=== PATIENT | male | born 1990 | race Caucasian/White ===

== ENCOUNTER 2016-10-06 12:08 | Emergency (ER) | payer OTHER ==
[~2016-10-06] VITALS: Ht 177.8 cm; Wt 64.9 kg
[2016-10-06] MEDS ORDERED: IBUP800T23 PO (12:25)
[2016-10-06] MEDS ORDERED: ULTR50TA PO (13:55)
--- NOTE | 2016-10-06 14:00 | REP ---
RIGHT FOOT SERIES: Four views. HISTORY: Trauma. FINDINGS: Four views right foot demonstrate overall normal mineralization. No fracture or subluxation is seen IMPRESSION: Negative right foot views. Signed by Krish Bal MD 10/06/2016 05:00 P
[2016-10-06 14:08] VITALS: BP 124/75
== END 2016-10-06 14:11 | disposition home or self-care (01) ==
LOC: M ED 13:03
DX: S93.601A Unspecified sprain of right foot, initial encounter (principal); W22.8XXA Striking against or struck by other objects, initial encounter; Y92.89 Other specified places as the place of occurrence of the external cause; Y93.89 Activity, other specified; Y99.8 Other external cause status; M25.551 Pain in right hip; M79.651 Pain in right thigh

== ENCOUNTER 2016-10-28 11:53 | Emergency (ER) | payer OTHER ==
[~2016-10-28] VITALS: Ht 177.8 cm; Wt 66.2 kg
[~2016-10-28 11:53] MED LIST: IBUP800T23 PO; ULTR50TA PO
[2016-10-28 11:54] VITALS: BP 131/73
[2016-10-28] MEDS ORDERED: TRAM50TA2 PO (12:47)
== END 2016-10-28 13:11 | disposition home or self-care (01) ==
LOC: M ED 12:18
DX: S93.601A Unspecified sprain of right foot, initial encounter (principal); X58.XXXA Exposure to other specified factors, initial encounter; Y92.89 Other specified places as the place of occurrence of the external cause; Y93.89 Activity, other specified; Y99.1 Military activity; F17.200 Nicotine dependence, unspecified, uncomplicated

== ENCOUNTER 2016-11-06 08:52 | Emergency (ER) | payer OTHER ==
[~2016-11-06] VITALS: Ht 177.8 cm; Wt 66.2 kg
[~2016-11-06 08:52] MED LIST changes: +TRAM50TA2 PO
[2016-11-06] MEDS ORDERED: TRAM50TA2 PO (11:16)
[2016-11-06 11:20] VITALS: BP 124/74
--- NOTE | 2016-11-06 11:20 | REP ---
Right foot series: Four views. History: Trauma. Comparison study October 06, 2016. Continued pain. Findings: Four views of the right foot are presented. There is no evidence of fracture, subluxation or periosteal reaction. An accessory os perineum is again seen unchanged. Bones, joints, and soft tissues are unremarkable. Impression: Negative right foot radiographs. No change from October 06, 2016. Signed by Krish Bal MD 11/06/2016 01:09 P
== END 2016-11-06 11:23 | disposition home or self-care (01) ==
LOC: M ED 10:11
DX: S90.31XD Contusion of right foot, subsequent encounter (principal); W22.8XXD Striking against or struck by other objects, subsequent encounter; Y92.89 Other specified places as the place of occurrence of the external cause; F17.210 Nicotine dependence, cigarettes, uncomplicated

== ENCOUNTER 2017-01-25 11:21 | Emergency (ER) | payer OTHER ==
[~2017-01-25] VITALS: Ht 177.8 cm; Wt 61.2 kg
[~2017-01-25 11:21] MED LIST changes: +IBUP1TAB7 PO; -IBUP800T23 PO; -ULTR50TA PO; +ULTR50TA8 PO
[2017-01-25 11:22] VITALS: BP 117/63
[2017-01-25] MEDS ORDERED: DICL1GEL3 (11:31)
[2017-01-25] MEDS ORDERED: GABA-282 (11:31)
[2017-01-25] MEDS ORDERED: LIDO5DIS41 (11:31)
--- NOTE | 2017-01-25 12:25 | REP ---
LEFT SHOULDER, THREE VIEWS: There is no evidence of an acute fracture, dislocation or intrinsic bone disease. IMPRESSION: No fracture or dislocation. Signed by Haim James MD 01/25/2017 01:32 P
[2017-01-25] MEDS ORDERED: ZANA4TAB PO (12:34)
[2017-01-25] MEDS ORDERED: MOBI4TAB PO (12:34)
== END 2017-01-25 12:52 | disposition home or self-care (01) ==
LOC: M ED 11:21
DX: S43.402A Unspecified sprain of left shoulder joint, initial encounter (principal); F17.210 Nicotine dependence, cigarettes, uncomplicated; X58.XXXA Exposure to other specified factors, initial encounter; Y92.89 Other specified places as the place of occurrence of the external cause; Y99.9 Unspecified external cause status; Y93.9 Activity, unspecified; Z79.899 Other long term (current) drug therapy